=== PATIENT | male | born 1950 | race Caucasian/White ===

== ENCOUNTER → 2018-04-29 | Outpatient (CLI) | payer MEDICARE, BC | END | disposition home or self-care (01) | LOC: PCVCCLINIC 12:34 | DX: I10 Essential (primary) hypertension (principal); R07.2 Precordial pain; R94.31 Abnormal electrocardiogram [ECG] [EKG]; E78.5 Hyperlipidemia, unspecified; K40.20 Bilateral inguinal hernia, without obstruction or gangrene, not specified as recurrent; Z87.891 Personal history of nicotine dependence; Z79.899 Other long term (current) drug therapy | CPT/HCPCS: 80061; 93005; G0463 ==

== ENCOUNTER → 2018-05-07 | Outpatient (CLI) | payer MEDICARE, BC | END | disposition home or self-care (01) | LOC: PCVCIMAG 15:35 | DX: I10 Essential (primary) hypertension (principal); R94.31 Abnormal electrocardiogram [ECG] [EKG]; E78.5 Hyperlipidemia, unspecified; R07.2 Precordial pain | CPT/HCPCS: 36415; 93325; 93351 ==

== ENCOUNTER → 2018-06-13 | Outpatient (CLI) | payer MEDICARE, BC | END | disposition home or self-care (01) | LOC: PCVCCLINIC 10:11 | DX: I25.10 Atherosclerotic heart disease of native coronary artery without angina pectoris (principal); I25.5 Ischemic cardiomyopathy; I10 Essential (primary) hypertension; E78.5 Hyperlipidemia, unspecified; K40.20 Bilateral inguinal hernia, without obstruction or gangrene, not specified as recurrent; Z87.891 Personal history of nicotine dependence; Z79.82 Long term (current) use of aspirin | CPT/HCPCS: 93005; G0463 ==

== ENCOUNTER → 2018-09-18 | Outpatient (CLI) | payer MEDICARE, BC | END | disposition home or self-care (01) | LOC: PCVCCLINIC 11:40 | PROVIDERS: ATTEND Internal Medicine | DX: I25.10 Atherosclerotic heart disease of native coronary artery without angina pectoris (principal); R94.31 Abnormal electrocardiogram [ECG] [EKG]; I10 Essential (primary) hypertension; I25.5 Ischemic cardiomyopathy; E78.5 Hyperlipidemia, unspecified; K40.20 Bilateral inguinal hernia, without obstruction or gangrene, not specified as recurrent; Z87.891 Personal history of nicotine dependence; Z72.89 Other problems related to lifestyle; Z79.82 Long term (current) use of aspirin | CPT/HCPCS: 93005; G0463 ==

== ENCOUNTER → 2018-10-29 | Outpatient (CLI) | payer MEDICARE, BC ==
--- NOTE | 2018-10-29 13:06 | PCVCIMAG ---
APPROVED REPORT Study performed: 10/29/2018 11:17:31 Exam: Stress Echocardiogram Indication: Chest pain Patient Location: Echo lab Stress Nurse: Sasha Booker RN Room #: 2 Status: routine Ht: 5 ft 10 in HR: 76 bpm BP: 120/78 mmHg Rhythm: Incomplete RBBB Medical History Medical History: CAD s/p stent, HTN, Hyperlipidemia,Ischemic Cardiomyopathy Medications: Metoprolol- held Cardiac Risk Factors: HTN, Hyperlipidemia Previous Cardiac Procedures: PCI Pretest Chest Pain Characteristics: No chest pain Exercise History: Indeterminate Procedure The patient underwent an Exercise Stress Test using the Juan F Protocol. Blood pressure, heart rate, and EKG were monitored. An Echocardiogram was performed by switch technician in four stages in quad fashion. At peak stress, four selected images were obtained and placed side by side with resting images for comparison. Stress Test Details Stress Test: Exercise stress testing was performed using a Juan F protocol. HR Resting HR: 76 bpmMax Heart Rate (APMHR): 153 bpm Max HR Achieved: 153 bpmTarget HR (85% APMHR): 130 bpm % of APMHR: 100 Recovery HR: 105 bpm HR response to stress: Normal HR response to stress BP Resting BP: 120/78 mmHg Max BP: 194/88 mmHg Recovery BP: 142/78 mmHg BP response to stress: Normal blood pressure response to stress. ECG Resting ECG: Incomplete RBBB Stress ECG: Incomplete RBBB ST Change: Non-ischemic Maximum ST Deviation: 0 mm Arrhythmia: Frequent PACs, rare PVCs Recovery ECG: Sinus Rhythm, RBBB Recovery ST Change: Non-ischemic Recovery ST Deviation: 0 mm Recovery Arrhythmia: APC Clinical Reason for Termination: Maximal effort Stress Symptoms: fatigue,dyspnea Exercise duration: 7 min 27 sec Highest Stage Achieved: Stage 3: 3.4 mph at 14% grade. Exercise capacity: 10.1 METs Overall Exercise Capacity for Age: Average Angina Score: None No complications. Stress ECG Conclusion The patient exercised according to the JUAN F protocol for7:27 mins; achieving a work level of 10.1 METS. The resting heart rate of 72 bpm april to a maximum heart rate of 153 bpm. This value represent 100% of the maximal, age-predicted heart rate. The resting blood pressure of 120/78 mmHg, april to a maximum blood pressure of 194/88 mmHg. The exercise test was stopped due to fatigue and dyspnea. Del Cid Treadmill Score is 7.0 which is Low risk. Pre-Stress Echo The resting Echocardiogram showed abnormal left ventricular contractility with an estimated Ejection Fraction of about 50-55%. The resting Echocardiogram demonstrated wall motion abnormality in the apical septal, apical anterior wall. Post-Stress Echo The stress Echocardiogram showed normal left ventricular contractility with an estimated Ejection Fraction of about 60-65%. No new regional wall motion abnormalities with improvement in hypokinetic segments Conclusion Clinical Response: Non-ischemic Exercise Capacity: Average Stress ECG Response: Non-ischemic Stress Echo Images: Non-ischemic Normal stress echocardiogram with maximal exercise stress. Mild left ventricular dysfunction with hypokinesis involving distal septal and apical segments <Conclusion> Normal stress echocardiogram with maximal exercise stress. Mild left ventricular dysfunction with hypokinesis involving distal septal and apical segments
== END | disposition home or self-care (01) ==
LOC: PCVCIMAG 13:00
PROVIDERS: ATTEND Internal Medicine
DX: I25.119 Atherosclerotic heart disease of native coronary artery with unspecified angina pectoris (principal); E78.00 Pure hypercholesterolemia, unspecified; R60.9 Edema, unspecified; I11.9 Hypertensive heart disease without heart failure; I25.5 Ischemic cardiomyopathy; E78.5 Hyperlipidemia, unspecified; I48.91 Unspecified atrial fibrillation; E11.40 Type 2 diabetes mellitus with diabetic neuropathy, unspecified; K21.9 Gastro-esophageal reflux disease without esophagitis; G47.33 Obstructive sleep apnea (adult) (pediatric); Z79.82 Long term (current) use of aspirin; Z88.0 Allergy status to penicillin; Z98.890 Other specified postprocedural states
CPT/HCPCS: 93325; 93351